=== PATIENT | female | born 1945 | race Caucasian/White ===

== ENCOUNTER 2017-04-23 10:06 | Outpatient (CLI) | payer MEDICARE ==
--- NOTE | 2017-04-23 14:36 | RAD ---
CHEST 2 VIEWS: Date: 04/23/17 HISTORY: Right lower lobe pneumonia. COMPARISON: 07/15/12. FINDINGS: Atherosclerosis of aorta. Normal cardiac silhouette. Pulmonary vessels and hilum are normal. Costophr enic angles are clear. Hyperinflation with chronic changes. No mass. No consolidation. No pneumothora x. Scoliosis of lumbar spine is noted. There is evidence of previous intervention with a device proje cting over the cardiac silhouette. IMPRESSION: 1. No acute cardiopulmonary process. 2. Atherosclerosis. POS: [facility]
== END 2017-04-23 10:07 | disposition home or self-care (01) ==
LOC: SCSRAD 10:06
PROVIDERS: ATTEND Family Medicine
DX: J18.9 Pneumonia, unspecified organism (principal); I70.90 Unspecified atherosclerosis
CPT/HCPCS: 71020

== ENCOUNTER 2017-06-22 06:16 | Day surgery (SDC) | payer MEDICARE ==
[2017-06-21 13:31] VITALS: BMI 26.4
--- NOTE | 2017-06-22 05:51 | HP ---
DATE OF ADMISSION: 06/22/2017 HISTORY OF PRESENT ILLNESS: This is a 71-year-old female seen in my office because of severe indigestion, heartburn, and dyspepsia. She also complains of nausea off and on. . She had no vomiting. She has no abdominal pain. She complains more of heartburn and severe indigestion. The patient had no odynophagia or dysphagia. The patient has been taking antacids very frequently recently. The patient has no history of antibiotic intake. The patient is undergoing EGD because of chronic dysphagia, dyspepsia, heartburn, and indigestion. ALLERGIES: PENICILLIN. MEDICAL ILLNESSES: 1. Hypertension. 2. Hyperlipidemia. 3. Hypothyroidism. 4. Chronic anxiety and depression. 5. Possibility of hepatitis B. SOCIAL HISTORY: The patient does not smoke or drink alcohol. PHYSICAL EXAMINATION: VITAL SIGNS: Pulse is 70, blood pressure 130/80. HEENT: Conjunctivae clear. CARDIOVASCULAR: Lungs within normal limits. ABDOMEN: Soft to palpate. Abdomen is nontender. There is no organomegaly or masses. Bowel sounds are normal. ADMITTING DIAGNOSES: Severe indigestion, heartburn, and dyspepsia. PLAN: EGD. [facility]
--- NOTE | 2017-06-22 15:31 | OP ---
DATE OF PROCEDURE: 06/22/2017 OPERATIVE PROCEDURE: Esophagogastroduodenoscopy with biopsy. PREOPERATIVE DIAGNOSES: Severe indigestion, dyspepsia, nausea and heartburn. The symptoms persist o indio the last several months. The patient is undergoing esophagogastroduodenoscopy. POSTOPERATIVE DIAGNOSES: 1. Normal esophageal mucosa and no esophagitis seen. 2. Antral gastritis. 3. Normal duodenum. PROCEDURE IN DETAIL: The patient was placed on her left lateral position and was given sedation by A nesthesia Department. A [employer] video gastroscope under direct vision was passed down the oropharynx, past the GE junction, into the stomach and subsequently into the descending duodenum. Although the patient complains of severe and persistent acid reflux, severe indigestion, heartburn, and on the end oscopy the esophageal mucosa appeared normal. The GE junction, no pathology seen. Retroflexion of t he scope in the stomach showed no lesions in the fundus or cardia. The gastric body, no pathology se en. The incisura angularis showed mild edema. The gastric antrum showed mild gastritis. Biop sies obtained from the gastric antrum and gastric body. The scope was advanced into the duodenal bul b, and descending duodenum. No lesions seen in the duodenum. The stomach was decompressed and the s cope removed. DISCHARGE PLANNING: This is a 71-year-old female with severe reflux symptoms, dyspepsia, a nd indigestion. The patient came in for EGD. Surprisingly, the EGD showed no esophageal pathology. She did have mild antral gastritis. The patient did well post procedure, and is being discharged. We will plan to obtain abdominal sonogram as this EGD showed no esophageal pathology. The patient al so has history of depression and I will start the patient on Pradaxa 10 mg p.o. from today.
[2017-06-22] MEDS ORDERED: Lidocaine 1% PF 5 ML VIAL ONE (15:59)
[2017-06-22] MEDS ORDERED: Propofol 200 MG/20 ML VIAL ONE (15:59)
== END 2017-06-22 09:30 | disposition home or self-care (01) ==
LOC: SDC 06:16
PROVIDERS: ATTEND Internal Medicine Gastroenterology
PROC: 0DB78ZX Excision of Stomach, Pylorus, Via Natural or Artificial Opening Endoscopic, Diagnostic (ICD-10-PCS; principal; 2017-06-22)
DX: K29.50 Unspecified chronic gastritis without bleeding (principal); I10 Essential (primary) hypertension; E78.5 Hyperlipidemia, unspecified; E03.9 Hypothyroidism, unspecified; F41.8 Other specified anxiety disorders; Z79.82 Long term (current) use of aspirin; Z79.899 Other long term (current) drug therapy; Z88.0 Allergy status to penicillin; Z95.818 Presence of other cardiac implants and grafts; Z90.710 Acquired absence of both cervix and uterus; Z98.890 Other specified postprocedural states
CPT/HCPCS: 88305; 88312; J2001; J2704

== ENCOUNTER 2017-07-19 14:40 | Outpatient (CLI) | payer MEDICARE ==
--- NOTE | 2017-07-19 16:03 | CT ---
CT BRAIN 07/19/17 PROVIDED CLINICAL HISTORY: Head pain. FINDINGS: No comparisons. The ventricular system is nondilated. There is no evidence for intracranial hemorrhage or mass effect . Encephalomalacia involves a portion of the right frontal and temporal lobes. The extracranial soft tissues and osseous structures demonstrate no acute abnormality. IMPRESSION: No evidence for intracranial hemorrhage or mass effect. POS: [facility]
--- NOTE | 2017-07-19 16:37 | CT ---
CT CERVICAL SPINE 07/19/17 PROVIDED CLINICAL HISTORY: Neck pain, status post injury. FINDINGS: There is no evidence for fracture or traumatic subluxation. Vertebral body heights appear preserved. Disc space narrowing and end plate degenerative changes are noted at C3-4 and C5-6. Hemangioma format ion is seen within the body and articular pillar of C2 to the left of midline. No prevertebral soft t issue swelling apparent. The visualized lung apices appear clear. Vascular calcifications are seen. IMPRESSION: No evidence for fracture or traumatic subluxation. POS: [facility]
== END 2017-07-19 14:41 | disposition home or self-care (01) ==
LOC: TBSIIMAG 14:40
PROVIDERS: ATTEND Neurological Surgery
DX: M54.2 Cervicalgia (principal); R51 Headache
CPT/HCPCS: 70450; 72125

== ENCOUNTER 2019-03-25 11:30 | Outpatient (CLI) | payer MEDICARE ==
--- NOTE | 2019-03-25 12:45 | RAD ---
RADIOGRAPH LUMBAR SPINE 3 VIEWS: DATE: 03/25/2019 HISTORY: 73-year-old female with chronic low back pain FINDINGS: There are 5 lumbar-type vertebrae. Diffuse osteopenia. Vertebral body heights are maintained. Focal m ild to moderate levoscoliosis with apex of curvature at L1. Moderate to severe disc space narrowing at all levels from L1-2 through L5-S1, with endplate sclerosis and vacuum disc phenomenon at several of the levels. No high-grade spondylolisthesis. Facet DJD at L5-S1. IMPRESSION: 1) lumbar spondylosis with multilevel high-grade degenerative disc disease. 2) levoscoliosis of upper lumbar spine. 3) osteopenia.
== END 2019-03-25 11:31 | disposition home or self-care (01) ==
LOC: SCSRAD 11:30
PROVIDERS: ATTEND Family Medicine
DX: M54.5 Low back pain (principal); M47.816 Spondylosis without myelopathy or radiculopathy, lumbar region; M41.9 Scoliosis, unspecified; M51.36 Other intervertebral disc degeneration, lumbar region; M85.88 Other specified disorders of bone density and structure, other site
CPT/HCPCS: 72100

== ENCOUNTER 2019-07-01 10:01 | Outpatient (CLI) | payer MEDICARE ==
--- NOTE | 2019-07-01 11:39 | MRI ---
MRI LUMBAR SPINE WITHOUT CONTRAST: Date: 07/01/2019 INDICATION: Lumbar disc degeneration. Back pain. FINDINGS: Lumbar vertebra maintain height. Degenerative disc change is seen at all levels of the lumbar spine w ith loss of disc space. Degenerative osteophytes are seen from the lumbar vertebra. Degenerative end plate changes are prominent at L1-2 with end plate edema noted at this level. End plate edema is also seen at L4-5 disc space, and to a lesser degree at L3-4. These levels of end plate edema would indic ate Modic Type I change. There is edema in the vertebral bodies at L1 and L2, more prominent to the right of midline. At T12-L1, no significant disc abnormality. At L1-2, there is a mid diffuse disc bulge flattening the thecal sac. Moderate facet hypertrophy. No significant central canal stenosis. Mild right foraminal stenosis secondary to facet hypertrophy. At L2-3, mild broad based bulge. Moderate facet hypertrophy. No significant central canal or foramina l stenosis. At L3-4, broad based disc bulge flattens the thecal sac. Moderate facet hypertrophy. Mild central can al stenosis. At L4-5, mild disc bulge with posterior spurring. Prominent facet and ligamentous hypertrophy. Modera te central canal stenosis at this level. No significant foraminal stenosis. At L5-S1, mild disc bulge. Moderate facet hypertrophy. No significant central canal stenosis. There i s right foraminal stenosis secondary to hypertrophic change. IMPRESSION: 1. Multilevel degenerative disc and end plate changes, most pronounced at L1-2, as described above. Edema within the L1 and L2 vertebra to the right of midline probably degenerative in nature but osteo porotic fracture is not excluded. There is no height loss at this time. 2. Central canal stenosis at L4-5 as described above. See description at each level. POS: [facility]
== END 2019-07-01 10:02 | disposition home or self-care (01) ==
LOC: TBSIIMAG 10:01
PROVIDERS: ATTEND Neurological Surgery
DX: M51.36 Other intervertebral disc degeneration, lumbar region (principal); M48.061 Spinal stenosis, lumbar region without neurogenic claudication; M48.07 Spinal stenosis, lumbosacral region; R60.0 Localized edema
CPT/HCPCS: 72148

== ENCOUNTER 2021-05-02 19:58 | Inpatient (IN) | payer MEDICARE ==
[~2021-05-02 19:58] MED LIST: Iopamidol 370 76% 100 ML VIAL ONE; Iopamidol-370 76% 500 ML 1 ML ONE
[2021-05-02 20:40] LABS: #Basophils 0.1 thou/uL (0.0-0.2); #Eosinphils 0.2 thou/uL (0.0-0.7); #Lymphocytes 2.7 thou/uL (1.20-3.40); #Monocytes 0.7 thou/uL (0.11-0.59); #Neutrophils 3.4 thou/uL (1.40-6.50); %Basophils 0.9 % (0.0-1.0); %Eosinophils 2.2 % (0.0-10.0); %Lymphocytes 38.2 % (21.0-51.0); %Monocytes 10.5 % (0.0-10.0); %Neutrophils 48.3 % (42.0-75.0); Hemoglobin 13.2 g/dL (12.0-16.0); Mean Corpuscular HGB CONC 34.8 g/dL (32.0-36.0); Mean Corpuscular Hemoglobin 32.3 pg (27.0-31.0); Mean Corpuscular Volume 92.7 fL (78.0-98.0); Mean Platelet Volume 7.1 fL (7.4-10.4); Platelet Count 251 thou/uL (130-400); RBC Distribution Width 11.9 % (11.5-14.5); Red Blood Cell (RBC) Count 4.09 mill/uL (4.20-5.40)
[2021-05-02 20:53] LABS: PTT 25.6 sec (22.9-36.1); Prothrombin Time 12.9 sec (12.0-14.7)
[2021-05-02] MEDS ORDERED: Heparin 10,000 UNITS/ 10 ML VIAL ONE (20:53)
[2021-05-02 21:03] LABS: ALT (SGPT) 13 U/L (8-55); AST (SGOT) 19 U/L (5-34); Albumin 3.8 g/dL (3.4-4.8); Alkaline Phosphatase 70 U/L (40-110); Anion Gap 12 mmol/L (10-20); BUN (Urea Nitrogen) 16 mg/dL (9.8-20.1); Bilirubin, Total 0.4 mg/dL (0.2-1.2); CK (CPK) 78 U/L (29-168); Calc. Creatinine Clearance 0 mL/min (70-130); Calcium 9.6 mg/dL (7.8-10.44); Carbon Dioxide 25 mmol/L (23-31); Chloride 105 mmol/L (98-107); Globulin 3.1 g/dL (2.4-3.5); Glucose 102 mg/dL (83-110); Potassium 4.2 mmol/L (3.5-5.1); Protein, Total 6.9 g/dL (5.8-8.1); Sodium 138 mmol/L (136-145)
[2021-05-02] MEDS ORDERED: Fentanyl 100 MCG/2 ML VIAL ONE (21:10)
[2021-05-02] MEDS ORDERED: Lidocaine 1% PF 5 ML VIAL ONE (21:22)
[2021-05-02] MEDS ORDERED: PROPOFOL 200 MG/20 ML VIAL ONE (21:22)
[2021-05-02] MEDS ORDERED: Rocuronium Bromide 10 MG/ML (10ML VIAL) ONE (21:22)
[2021-05-02] MEDS ORDERED: Succinylcholine 200 MG/10 ml SYRINGE FS ONE (21:22)
[2021-05-02 22:03] LABS: SARS-CoV-2 NAA Rapid Test Not Detected (NotDetected)
[2021-05-02] MEDS ORDERED: hydrALAZINE 20 MG/ML VIAL SLOW IVP PRN (22:17)
[2021-05-02] MEDS ORDERED: niCARdipine 25 MG in Sodium Chloride 0.9% 250 ML 250 ML IVPB PRN (22:17)
[2021-05-02] MEDS ORDERED: Labetalol HCl 100 MG/20 ML VIAL SLOW IVP PRN (22:17)
[2021-05-02] MEDS ORDERED: Morphine 2 MG/ML VIAL SLOW IVP PRN (23:15)
[2021-05-02] MEDS ORDERED: Propofol 1,000 MG/100 ML VIAL IV PRN (23:15)
[2021-05-02] MEDS ORDERED: DISCONTINUE PREVIOUS NARCOTIC PAIN MEDICATIONS AND BENZODIAZEPINES FS SCH (23:15)
[2021-05-02] MEDS ORDERED: Propofol BOLUS 1,000 MG/100 ML VIAL IV PRN (23:15)
[2021-05-02] MEDS ORDERED: Fentanyl BOLUS 250 ML IVPB PRN (23:15)
[2021-05-02 23:22] LABS: #Basophils 0.1 thou/uL (0.0-0.2); #Eosinphils 0.1 thou/uL (0.0-0.7); #Lymphocytes 4.7 thou/uL (1.20-3.40); #Neutrophils 11.4 thou/uL (1.40-6.50); %Basophils 0.4 % (0.0-1.0); %Eosinophils 0.7 % (0.0-10.0); %Lymphocytes 27.1 % (21.0-51.0); %Monocytes 5.8 % (0.0-10.0); Hemoglobin 13.8 g/dL (12.0-16.0); Mean Corpuscular HGB CONC 32.9 g/dL (32.0-36.0); Mean Corpuscular Hemoglobin 30.7 pg (27.0-31.0); Mean Corpuscular Volume 93.4 fL (78.0-98.0); Mean Platelet Volume 7.1 fL (7.4-10.4); Platelet Count 266 thou/uL (130-400); RBC Distribution Width 11.9 % (11.5-14.5); Red Blood Cell (RBC) Count 4.49 mill/uL (4.20-5.40); White Blood Cell (WBC) Count 17.3 thou/uL (4.8-10.8)
[2021-05-02 23:30] LABS: Anion Gap 13 mmol/L (10-20); BUN (Urea Nitrogen) 14 mg/dL (9.8-20.1); Calc. Creatinine Clearance 0 mL/min (70-130); Calcium 8.7 mg/dL (7.8-10.44); Carbon Dioxide 19 mmol/L (23-31); Chloride 110 mmol/L (98-107); Glucose 135 mg/dL (83-110); Potassium 3.9 mmol/L (3.5-5.1); Sodium 138 mmol/L (136-145)
[2021-05-03] MEDS: Morphine 4 MG/ML VIAL SLOW IVP PRN (00:01)
[2021-05-03] MEDS: Sodium Chloride 0.9% 1,000 ML IV SCH ×2 (00:19→11:29)
[2021-05-03] MEDS: fentaNYL Citrate/PF 2,000 MCG in Sodium Chloride 0.9% 60 ML IV SCH (00:29)
[2021-05-03 03:08] LABS: Base Excess (BEa) -4.3 mEq/L (-2.0 to +3.0); CO2 Tension 29.8 mmHg (35.0-45.0); Calcium, Ionized (arterial) 1.08 mmol/L (1.12-1.30); Carboxyhemoglobin (COHb) 0.3 gm% (0.0-3.0); O2 Tension (PaO2), arterial 126.4 mmHg (> 70.0); Potassium - ABG Lab 3.57 mmol/L (3.70-5.30); pH, Arterial 7.42 (7.35-7.45)
[2021-05-03 03:11] LABS: Puncture Site LBA
[2021-05-03] MEDS: Lorazepam 2 MG/ML VIAL SLOW IVP PRN (03:20)
[2021-05-03 03:50] LABS: Cardiac Risk 2.9 (Less than 4.5)
[2021-05-03] MEDS ORDERED: Norepinephrine 8 MG/0.9% NS 250 ML IVPB SCH (08:15)
[2021-05-03 08:23] LABS: Actual Bicarbonate (HCO3a) 19.4 mEq/L (22-28); Base Excess (BEa) -4.1 mEq/L (-2.0 to +3.0); CO2 Tension 31.6 mmHg (35.0-45.0); Calcium, Ionized (arterial) 1.13 mmol/L (1.12-1.30); Hemoglobin (Hb) 15.5 g/dL (12.0-16.0); O2 Tension (PaO2), arterial 77.5 mmHg (> 70.0); Potassium - ABG Lab 3.59 mmol/L (3.70-5.30); pH, Arterial 7.41 (7.35-7.45)
[2021-05-03 08:24] LABS: Puncture Site LRA
[2021-05-03] MEDS: Aspirin 300 MG Suppository PR SCH (08:56)
[2021-05-03] MEDS: Enoxaparin Sodium 40 MG/0.4 ML SYRINGE SC SCH (08:56)
[2021-05-03] MEDS: Aspirin 325 mg Enteric Coated Tablet PO SCH (08:56)
[2021-05-03] MEDS ORDERED: FLU VACC QS2021-22(65YR UP)/PF 240 MCG/0.7 ML SYRINGE IM ONE (14:00)
[2021-05-03] MEDS: Atorvastatin Calcium 40 MG TAB PO SCH (20:30)
[2021-05-04] MEDS: Sodium Chloride 0.9% 1,000 ML IV SCH ×4 (02:48→19:32)
[2021-05-04] MEDS: Aspirin 300 MG Suppository PR SCH (08:38)
[2021-05-04] MEDS: Aspirin 325 mg Enteric Coated Tablet PO SCH (08:38)
[2021-05-04] MEDS: Enoxaparin Sodium 40 MG/0.4 ML SYRINGE SC SCH (08:38)
[2021-05-04] MEDS: Acetaminophen 325 MG TAB PO PRN (19:39)
[2021-05-04] MEDS: Atorvastatin Calcium 40 MG TAB PO SCH (19:49)
[2021-05-04] MEDS: fentaNYL Citrate/PF 2,000 MCG in Sodium Chloride 0.9% 60 ML IV SCH (23:41)
[2021-05-05 04:14] LABS: #Lymphocytes 1.7 thou/uL (1.20-3.40); #Monocytes 1.2 thou/uL (0.11-0.59); #Neutrophils 7.3 thou/uL (1.40-6.50); %Basophils 0.3 % (0.0-1.0); %Eosinophils 0.2 % (0.0-10.0); %Lymphocytes 16.4 % (21.0-51.0); %Monocytes 11.6 % (0.0-10.0); %Neutrophils 71.5 % (42.0-75.0); Mean Corpuscular HGB CONC 34.7 g/dL (32.0-36.0); Mean Corpuscular Hemoglobin 32.5 pg (27.0-31.0); Mean Corpuscular Volume 93.6 fL (78.0-98.0); Mean Platelet Volume 7.6 fL (7.4-10.4); Platelet Count 163 thou/uL (130-400); RBC Distribution Width 11.8 % (11.5-14.5); Red Blood Cell (RBC) Count 2.47 mill/uL (4.20-5.40); White Blood Cell (WBC) Count 10.3 thou/uL (4.8-10.8)
[2021-05-05 04:35] LABS: Anion Gap 7 mmol/L (10-20); BUN (Urea Nitrogen) 11 mg/dL (9.8-20.1); Calc. Creatinine Clearance 80 mL/min (70-130); Carbon Dioxide 25 mmol/L (23-31); Chloride 109 mmol/L (98-107); Glucose 140 mg/dL (83-110); Potassium 3.2 mmol/L (3.5-5.1); Sodium 138 mmol/L (136-145)
[2021-05-05] MEDS: Sodium Chloride 0.9% 1,000 ML IV SCH (08:12)
[2021-05-05] MEDS: Aspirin 325 mg Enteric Coated Tablet PO SCH (08:12)
[2021-05-05] MEDS: Enoxaparin Sodium 40 MG/0.4 ML SYRINGE SC SCH (08:12)
[2021-05-05] MEDS: Aspirin 300 MG Suppository PR SCH (09:40)
[2021-05-05] MEDS ORDERED: Electrolyte Replacement Protocol 1 EACH FS SCH (10:45)
[2021-05-05] MEDS ORDERED: Potassium Chloride 40 MEQ in Premix Bag 1 BAG IVPB SCH (11:30)
[2021-05-05] MEDS ORDERED: Potassium Chloride 40 MEQ in Sodium Chloride 0.9% 250 ML 250 ML IVPB SCH (12:00)
[2021-05-05] MEDS: Furosemide 20 MG/2 ML VIAL SLOW IVP SCH (12:24)
[2021-05-05] MEDS: Atorvastatin Calcium 40 MG TAB PO SCH (20:00)
[2021-05-05] MEDS: Acetaminophen 325 MG TAB PO PRN (20:00)
[2021-05-06] MEDS: Furosemide 20 MG/2 ML VIAL SLOW IVP SCH (06:38)
[2021-05-06] MEDS: Enoxaparin Sodium 40 MG/0.4 ML SYRINGE SC SCH (08:54)
[2021-05-06] MEDS: Aspirin 325 mg Enteric Coated Tablet PO SCH (08:54)
[2021-05-06] MEDS: Aspirin 300 MG Suppository PR SCH (08:55)
[2021-05-06] MEDS ORDERED: Scopolamine 1.5 mg/72 hour Patch TD SCH (09:30)
[2021-05-06] MEDS ORDERED: Potassium Bicarbonate/Cit Ac 20 MEQ TAB PER TUBE SCH (11:30)
[2021-05-06] MEDS: Morphine 4 MG/ML VIAL SLOW IVP PRN ×2 (13:48→21:46)
[2021-05-06] MEDS: Atorvastatin Calcium 40 MG TAB PO SCH (20:12)
[2021-05-06] MEDS: Acetaminophen 325 MG TAB PO PRN (21:01)
[2021-05-06 21:23] LABS: #Lymphocytes 1.2 thou/uL (1.20-3.40); #Monocytes 0.6 thou/uL (0.11-0.59); %Basophils 0.1 % (0.0-1.0); %Eosinophils 0.5 % (0.0-10.0); %Lymphocytes 18.1 % (21.0-51.0); %Monocytes 8.9 % (0.0-10.0); %Neutrophils 72.4 % (42.0-75.0); Hemoglobin 9.2 g/dL (12.0-16.0); Mean Corpuscular HGB CONC 34.3 g/dL (32.0-36.0); Mean Corpuscular Hemoglobin 31.7 pg (27.0-31.0); Mean Corpuscular Volume 92.5 fL (78.0-98.0); Mean Platelet Volume 7.2 fL (7.4-10.4); Platelet Count 194 thou/uL (130-400); RBC Distribution Width 11.8 % (11.5-14.5); Red Blood Cell (RBC) Count 2.92 mill/uL (4.20-5.40); White Blood Cell (WBC) Count 6.9 thou/uL (4.8-10.8)
[2021-05-06 21:39] LABS: Bacteria/HPF None Seen HPF (None Seen); Bilirubin Negative (Negative); Blood, Urine Negative (Negative); Clarity Clear (Clear); Glucose, Urine (Dipstick) Normal (Negative); Ketone, Urine Negative (Negative); Leukocyte Negative Leu/uL (Negative); Nitrite Negative (Negative); Protein, Urine (Dipstick) 20 mg/dL (Neg-Trace); RBC/HPF 0-3 HPF (0-3); Specific Gravity, Urine 1.027 (1.002-1.036); Squamous Epithelial None Seen HPF (0-3); WBC/HPF 0-3 HPF (0-3); pH, Urine 7.5 (5.0-9.0)
[2021-05-06 21:41] LABS: Urine Culture Reflex No No
[2021-05-07 04:31] LABS: Anion Gap 8 mmol/L (10-20); BUN (Urea Nitrogen) 19 mg/dL (9.8-20.1); Calc. Creatinine Clearance 79 mL/min (70-130); Calcium 8.4 mg/dL (7.8-10.44); Carbon Dioxide 29 mmol/L (23-31); Chloride 105 mmol/L (98-107); Glucose 130 mg/dL (83-110); Potassium 3.8 mmol/L (3.5-5.1); Sodium 138 mmol/L (136-145)
[2021-05-07 05:11] LABS: Band 13 % (5-11); Eosinophils 1 % (0-10); Lymphocytes 23 % (21-51); MDiff Complete? YES; Mean Corpuscular HGB CONC 33.4 g/dL (32.0-36.0); Mean Corpuscular Hemoglobin 31.2 pg (27.0-31.0); Mean Corpuscular Volume 93.5 fL (78.0-98.0); Mean Platelet Volume 7.4 fL (7.4-10.4); Monocytes 7 % (0-10); Neutrophil 55 % (42-75); Platelet Count 228 thou/uL (130-400); RBC Distribution Width 11.8 % (11.5-14.5); Red Blood Cell (RBC) Count 2.55 mill/uL (4.20-5.40)
[2021-05-07 07:06] LABS: Base Excess (BEa) 3.5 mEq/L (-2.0 to +3.0); CO2 Tension 36.9 mmHg (35.0-45.0); Calcium, Ionized (arterial) 1.13 mmol/L (1.12-1.30); Carboxyhemoglobin (COHb) 0.9 gm% (0.0-3.0); Hemoglobin (Hb) 8.9 g/dL (12.0-16.0); O2 Tension (PaO2), arterial 79.2 mmHg (> 70.0); Potassium - ABG Lab 3.99 mmol/L (3.70-5.30); pH, Arterial 7.48 (7.35-7.45)
[2021-05-07 07:34] LABS: ALV-art Gradient 124.225 mmHg (0-20); Puncture Site LRA
[2021-05-07] MEDS: Aspirin 325 mg Enteric Coated Tablet PO SCH (08:30)
[2021-05-07] MEDS: Enoxaparin Sodium 40 MG/0.4 ML SYRINGE SC SCH (08:30)
[2021-05-07] MEDS: Morphine 4 MG/ML VIAL SLOW IVP PRN ×2 (15:31→20:13)
[2021-05-07 19:14] LABS: Troponin I 0.131 ng/mL (< 0.028)
[2021-05-07] MEDS: Atorvastatin Calcium 40 MG TAB PO SCH (20:15)
[2021-05-08 04:56] LABS: Hemoglobin 8.9 g/dL (12.0-16.0); Mean Corpuscular HGB CONC 34.2 g/dL (32.0-36.0); Mean Corpuscular Volume 93.4 fL (78.0-98.0); Mean Platelet Volume 7.4 fL (7.4-10.4); Platelet Count 301 thou/uL (130-400); RBC Distribution Width 11.7 % (11.5-14.5); Red Blood Cell (RBC) Count 2.77 mill/uL (4.20-5.40); White Blood Cell (WBC) Count 11.2 thou/uL (4.8-10.8)
[2021-05-08 05:04] LABS: Band 3 % (5-11); Eosinophils 1 % (0-10); Lymphocytes 21 % (21-51); MDiff Complete? YES; Monocytes 6 % (0-10); Neutrophil 69 % (42-75)
[2021-05-08 05:12] LABS: Anion Gap 10 mmol/L (10-20); BUN (Urea Nitrogen) 15 mg/dL (9.8-20.1); Calc. Creatinine Clearance 88 mL/min (70-130); Carbon Dioxide 29 mmol/L (23-31); Chloride 104 mmol/L (98-107); Glucose 141 mg/dL (83-110); Potassium 3.9 mmol/L (3.5-5.1); Sodium 139 mmol/L (136-145)
[2021-05-08] MEDS: Morphine 4 MG/ML VIAL SLOW IVP PRN ×3 (07:43→20:12)
[2021-05-08] MEDS: Acetaminophen 325 MG TAB PO PRN (07:56)
[2021-05-08 08:04] LABS: Actual Bicarbonate (HCO3a) 23.3 mEq/L (22-28); Base Excess (BEa) 0.6 mEq/L (-2.0 to +3.0); CO2 Tension 30.6 mmHg (35.0-45.0); Calcium, Ionized (arterial) 1.14 mmol/L (1.12-1.30); Carboxyhemoglobin (COHb) 0.7 gm% (0.0-3.0); Hemoglobin (Hb) 9.7 g/dL (12.0-16.0); O2 Tension (PaO2), arterial 62.2 mmHg (> 70.0); Potassium - ABG Lab 4.09 mmol/L (3.70-5.30)
[2021-05-08 08:10] LABS: Puncture Site LRA
[2021-05-08] MEDS: Enoxaparin Sodium 40 MG/0.4 ML SYRINGE SC SCH (09:44)
[2021-05-08] MEDS: Aspirin 325 mg Enteric Coated Tablet PO SCH (09:44)
[2021-05-08 10:22] LABS: Bacteria/HPF 1+ HPF (None Seen); Bilirubin Negative (Negative); Blood, Urine Trace (Negative); Clarity Turbid (Clear); Glucose, Urine (Dipstick) 50 mg/dL (Negative); Ketone, Urine Negative (Negative); Leukocyte 500 Leu/uL (Negative); Nitrite Negative (Negative); Protein, Urine (Dipstick) 70 mg/dL (Neg-Trace); Specific Gravity, Urine 1.028 (1.002-1.036); Squamous Epithelial 0-3 HPF (0-3); Urobilinogen Normal mg/dL (Less than 2); WBC/HPF Greater than 50 HPF (0-3); pH, Urine 8.5 (5.0-9.0)
[2021-05-08] MEDS ORDERED: Vancomycin 1 GM in Premix Bag 1 BAG IVPB SCH (18:00)
[2021-05-08] MEDS: Cefepime 2 GM in Sodium Chloride 0.9% 100 ML IVPB SCH (18:27)
[2021-05-08] MEDS: Atorvastatin Calcium 40 MG TAB PO SCH (20:55)
[2021-05-08] MEDS: Lorazepam 2 MG/ML VIAL SLOW IVP PRN (23:31)
[2021-05-09] MEDS: Acetaminophen 325 MG TAB PO PRN (00:38)
[2021-05-09] MEDS: Morphine 4 MG/ML VIAL SLOW IVP PRN (03:29)
[2021-05-09 04:47] LABS: Anion Gap 11 mmol/L (10-20); BUN (Urea Nitrogen) 20 mg/dL (9.8-20.1); Calc. Creatinine Clearance 83 mL/min (70-130); Calcium 8.8 mg/dL (7.8-10.44); Carbon Dioxide 27 mmol/L (23-31); Chloride 104 mmol/L (98-107); Glucose 139 mg/dL (83-110); Potassium 4.1 mmol/L (3.5-5.1); Sodium 138 mmol/L (136-145)
[2021-05-09] MEDS: Cefepime 2 GM in Sodium Chloride 0.9% 100 ML IVPB SCH ×2 (05:03→17:34)
[2021-05-09] MEDS: Vancomycin HCl 1 GM in Sodium Chloride 0.9% 250 ML 250 ML IVPB SCH ×2 (05:53→18:59)
[2021-05-09 06:27] LABS: Hemoglobin 8.1 g/dL (12.0-16.0); Mean Corpuscular HGB CONC 34.1 g/dL (32.0-36.0); Mean Corpuscular Hemoglobin 32.2 pg (27.0-31.0); Mean Corpuscular Volume 94.4 fL (78.0-98.0); Mean Platelet Volume 7.7 fL (7.4-10.4); Platelet Count 308 thou/uL (130-400); Red Blood Cell (RBC) Count 2.53 mill/uL (4.20-5.40); White Blood Cell (WBC) Count 10.1 thou/uL (4.8-10.8)
[2021-05-09 07:16] LABS: Band 7 % (5-11); Eosinophils 4 % (0-10); Lymphocytes 36 % (21-51); MDiff Complete? YES; Monocytes 4 % (0-10); Neutrophil 49 % (42-75)
[2021-05-09 07:37] LABS: Actual Bicarbonate (HCO3a) 24.2 mEq/L (22-28); Base Excess (BEa) 0.9 mEq/L (-2.0 to +3.0); CO2 Tension 33.3 mmHg (35.0-45.0); Calcium, Ionized (arterial) 1.15 mmol/L (1.12-1.30); Hemoglobin (Hb) 8.3 g/dL (12.0-16.0); O2 Tension (PaO2), arterial 69.8 mmHg (> 70.0); Potassium - ABG Lab 3.65 mmol/L (3.70-5.30); pH, Arterial 7.48 (7.35-7.45)
[2021-05-09 07:38] LABS: ALV-art Gradient 102.475 mmHg (0-20); Puncture Site RRA
[2021-05-09] MEDS: Aspirin 325 mg Enteric Coated Tablet PO SCH (09:47)
[2021-05-09] MEDS: Enoxaparin Sodium 40 MG/0.4 ML SYRINGE SC SCH (09:47)
[2021-05-09] MEDS: Scopolamine 1.5 mg/72 hour Patch TD SCH (09:47)
[2021-05-09] MEDS ORDERED: Propofol 1,000 MG/100 ML VIAL IV ONE (11:24)
[2021-05-09] MEDS ORDERED: Propofol 1,000 MG/100 ML VIAL IV SCH (11:30)
[2021-05-09] MEDS: methylPREDNISolone Sod Succ 40 MG VIAL IVP SCH (11:35)
[2021-05-09] MEDS ORDERED: methylPREDNISolone Sod Succ 40 MG VIAL ONE (11:37)
[2021-05-09] MEDS ORDERED: Rocuronium Bromide 10 MG/ML (10ML VIAL) IVP SCH (12:30)
[2021-05-09] MEDS ORDERED: Fentanyl CADD 100 ML IV SCH (12:30)
[2021-05-09] MEDS ORDERED: Morphine 2 MG/ML VIAL SLOW IVP PRN (12:30)
[2021-05-09] MEDS ORDERED: Propofol BOLUS 1,000 MG/100 ML VIAL IV PRN (12:30)
[2021-05-09] MEDS ORDERED: Lorazepam 2 MG/ML VIAL SLOW IVP PRN (12:30)
[2021-05-09] MEDS ORDERED: PROPOFOL 200 MG/20 ML VIAL IV SCH (12:30)
[2021-05-09] MEDS ORDERED: Fentanyl BOLUS 250 ML IVPB PRN (12:30)
[2021-05-09] MEDS: Propofol 1,000 MG/100 ML VIAL IV PRN ×2 (16:27→23:58)
[2021-05-09] MEDS: Atorvastatin Calcium 40 MG TAB PO SCH (21:25)
[2021-05-10 04:38] LABS: Hemoglobin 9.1 g/dL (12.0-16.0); MDiff Complete? YES; Mean Corpuscular HGB CONC 33.2 g/dL (32.0-36.0); Mean Corpuscular Hemoglobin 31.2 pg (27.0-31.0); Mean Corpuscular Volume 93.8 fL (78.0-98.0); Mean Platelet Volume 7.3 fL (7.4-10.4); Platelet Count 463 thou/uL (130-400); RBC Distribution Width 11.9 % (11.5-14.5); Red Blood Cell (RBC) Count 2.93 mill/uL (4.20-5.40); White Blood Cell (WBC) Count 12.1 thou/uL (4.8-10.8)
[2021-05-10 04:39] LABS: Band 2 % (5-11); Hypochromia SLIGHT = 6-15 cells (100X) (0-5/hpf); Lymphocytes 18 % (21-51); Monocytes 16 % (0-10); Neutrophil 64 % (42-75); Platelet Morphology Comment Appears Increased
[2021-05-10 04:44] LABS: Anion Gap 11 mmol/L (10-20); BUN (Urea Nitrogen) 14 mg/dL (9.8-20.1); Calc. Creatinine Clearance 79 mL/min (70-130); Carbon Dioxide 28 mmol/L (23-31); Chloride 105 mmol/L (98-107); Glucose 163 mg/dL (83-110); Potassium 3.8 mmol/L (3.5-5.1); Sodium 140 mmol/L (136-145)
[2021-05-10 05:38] LABS: Vancomycin, Trough 5.7 ug/mL
[2021-05-10] MEDS: Propofol 1,000 MG/100 ML VIAL IV PRN ×2 (05:40→11:52)
[2021-05-10] MEDS: Cefepime 2 GM in Sodium Chloride 0.9% 100 ML IVPB SCH ×2 (05:40→17:36)
[2021-05-10] MEDS ORDERED: Vancomycin HCl 1 GM in Sodium Chloride 0.9% 250 ML 250 ML IVPB SCH ×2 (06:00→18:00)
[2021-05-10] MEDS: Vancomycin HCl 1 GM in Sodium Chloride 0.9% 250 ML 250 ML IVPB SCH (06:44)
[2021-05-10 06:53] LABS: Actual Bicarbonate (HCO3a) 24.7 mEq/L (22-28); Base Excess (BEa) 2.3 mEq/L (-2.0 to +3.0); CO2 Tension 29.4 mmHg (35.0-45.0); Carboxyhemoglobin (COHb) 0.9 gm% (0.0-3.0); Hemoglobin (Hb) 8.1 g/dL (12.0-16.0); O2 Tension (PaO2), arterial 77.7 mmHg (> 70.0); Potassium - ABG Lab 3.69 mmol/L (3.70-5.30); pH, Arterial 7.54 (7.35-7.45)
[2021-05-10 07:20] LABS: Puncture Site LRA
[2021-05-10] MEDS: Enoxaparin Sodium 40 MG/0.4 ML SYRINGE SC SCH (10:03)
[2021-05-10] MEDS: Aspirin 325 mg Enteric Coated Tablet PO SCH (10:03)
[2021-05-10 11:36] LABS: SARS-CoV-2 PCR by NAA Not Detected (NotDetected)
[2021-05-10] MEDS: methylPREDNISolone Sod Succ 40 MG VIAL IVP SCH (11:51)
[2021-05-10] MEDS ORDERED: Aspirin 325 MG TAB PO SCH (13:30)
[2021-05-10] MEDS ORDERED: Pantoprazole 40 MG GRANULES PACKET PO SCH (13:30)
[2021-05-10] MEDS: Atorvastatin Calcium 40 MG TAB PO SCH (20:01)
[2021-05-11] MEDS: Propofol 1,000 MG/100 ML VIAL IV PRN ×3 (01:28→17:56)
[2021-05-11 04:51] LABS: Anion Gap 9 mmol/L (10-20); BUN (Urea Nitrogen) 19 mg/dL (9.8-20.1); Calc. Creatinine Clearance 80 mL/min (70-130); Calcium 8.8 mg/dL (7.8-10.44); Carbon Dioxide 30 mmol/L (23-31); Chloride 107 mmol/L (98-107); Eosinophils 1 % (0-10); Glucose 112 mg/dL (83-110); Hemoglobin 8.7 g/dL (12.0-16.0); Hypochromia SLIGHT = 6-15 cells (100X) (0-5/hpf); Lymphocytes 19 % (21-51); MDiff Complete? YES; Mean Corpuscular HGB CONC 33.7 g/dL (32.0-36.0); Mean Corpuscular Hemoglobin 31.8 pg (27.0-31.0); Mean Corpuscular Volume 94.5 fL (78.0-98.0); Mean Platelet Volume 6.8 fL (7.4-10.4); Monocytes 14 % (0-10); Neutrophil 66 % (42-75); Platelet Count 528 thou/uL (130-400); Platelet Morphology Comment Appears Increased; Potassium 3.9 mmol/L (3.5-5.1); RBC Distribution Width 12.4 % (11.5-14.5); Red Blood Cell (RBC) Count 2.72 mill/uL (4.20-5.40); Sodium 142 mmol/L (136-145); White Blood Cell (WBC) Count 12.9 thou/uL (4.8-10.8)
[2021-05-11] MEDS: Cefepime 2 GM in Sodium Chloride 0.9% 100 ML IVPB SCH (05:46)
[2021-05-11 07:16] LABS: Actual Bicarbonate (HCO3a) 29.2 mEq/L (22-28); Base Excess (BEa) 5.1 mEq/L (-2.0 to +3.0); Calcium, Ionized (arterial) 1.01 mmol/L (1.12-1.30); Carboxyhemoglobin (COHb) 1.7 gm% (0.0-3.0); Hemoglobin (Hb) 7.7 g/dL (12.0-16.0); O2 Tension (PaO2), arterial 109.7 mmHg (> 70.0); Potassium - ABG Lab 3.82 mmol/L (3.70-5.30); pH, Arterial 7.47 (7.35-7.45)
[2021-05-11 08:09] LABS: Puncture Site LRA
[2021-05-11] MEDS: Pantoprazole 40 MG GRANULES PACKET PO SCH (08:32)
[2021-05-11] MEDS: Enoxaparin Sodium 40 MG/0.4 ML SYRINGE SC SCH (08:32)
[2021-05-11] MEDS: Aspirin 325 MG TAB PO SCH (08:32)
[2021-05-11] MEDS: methylPREDNISolone Sod Succ 40 MG VIAL IVP SCH (10:25)
[2021-05-11] MEDS ORDERED: Fentanyl 100 MCG/2 ML VIAL ONE (16:00)
[2021-05-11] MEDS ORDERED: Xylocaine 1% w/ Epi 1:100K 10 ML VIAL ONE (16:19)
[2021-05-11] MEDS ORDERED: Bupivacaine PF 0.5% 30 ML VIAL ONE (16:19)
[2021-05-11] MEDS ORDERED: Rocuronium Bromide 10 MG/ML (10ML VIAL) ONE (16:30)
[2021-05-11] MEDS ORDERED: cefTRIAXone\\ROCEPHIN 2 GM in Sodium Chloride 0.9% 100 ML IVPB SCH (18:00)
[2021-05-11] MEDS: Atorvastatin Calcium 40 MG TAB PO SCH (21:04)
[2021-05-12] MEDS: Acetaminophen 325 MG TAB PO PRN (04:33)
[2021-05-12 05:15] LABS: Anion Gap 11 mmol/L (10-20); BUN (Urea Nitrogen) 24 mg/dL (9.8-20.1); Calc. Creatinine Clearance 67 mL/min (70-130); Calcium 8.7 mg/dL (7.8-10.44); Carbon Dioxide 29 mmol/L (23-31); Chloride 106 mmol/L (98-107); Glucose 118 mg/dL (83-110); Potassium 4.3 mmol/L (3.5-5.1); Sodium 142 mmol/L (136-145)
[2021-05-12 05:19] LABS: Band 2 % (5-11); Eosinophils 1 % (0-10); Hemoglobin 9.6 g/dL (12.0-16.0); Lymphocytes 19 % (21-51); MDiff Complete? YES; Mean Corpuscular HGB CONC 33.4 g/dL (32.0-36.0); Mean Corpuscular Hemoglobin 31.5 pg (27.0-31.0); Mean Corpuscular Volume 94.4 fL (78.0-98.0); Mean Platelet Volume 6.7 fL (7.4-10.4); Monocytes 8 % (0-10); Neutrophil 70 % (42-75); Platelet Count 612 thou/uL (130-400); Platelet Morphology Comment Appears Increased; RBC Distribution Width 12.4 % (11.5-14.5); Red Blood Cell (RBC) Count 3.06 mill/uL (4.20-5.40); White Blood Cell (WBC) Count 16.1 thou/uL (4.8-10.8)
[2021-05-12] MEDS: Enoxaparin Sodium 40 MG/0.4 ML SYRINGE SC SCH (08:10)
[2021-05-12] MEDS: Aspirin 325 MG TAB PO SCH (08:11)
[2021-05-12] MEDS: Pantoprazole 40 MG GRANULES PACKET PO SCH (08:11)
[2021-05-12] MEDS: Scopolamine 1.5 mg/72 hour Patch TD SCH (08:11)
[2021-05-12] MEDS: methylPREDNISolone Sod Succ 40 MG VIAL IVP SCH (11:04)
[2021-05-12] MEDS ORDERED: Meropenem 1 GM in Sodium Chloride 0.9% 100 ML IVPB SCH ×2 (14:30→22:00)
[2021-05-12] MEDS: Morphine 4 MG/ML VIAL SLOW IVP PRN (15:55)
[2021-05-12] MEDS ORDERED: Atorvastatin Calcium 40 MG TAB PER TUBE SCH (16:01)
[2021-05-12] MEDS: Meropenem 1 GM in Sodium Chloride 0.9% 100 ML IVPB SCH (21:04)
[2021-05-12] MEDS: Atorvastatin Calcium 40 MG TAB PER TUBE SCH (21:04)
[2021-05-13 04:32] LABS: Anion Gap 13 mmol/L (10-20); BUN (Urea Nitrogen) 26 mg/dL (9.8-20.1); Calc. Creatinine Clearance 81 mL/min (70-130); Calcium 8.4 mg/dL (7.8-10.44); Carbon Dioxide 26 mmol/L (23-31); Chloride 105 mmol/L (98-107); Glucose 116 mg/dL (83-110); Potassium 4.1 mmol/L (3.5-5.1); Sodium 140 mmol/L (136-145)
[2021-05-13 04:52] LABS: Band 3 % (5-11); Hemoglobin 8.8 g/dL (12.0-16.0); Lymphocytes 11 % (21-51); MDiff Complete? YES; Mean Corpuscular Hemoglobin 31.3 pg (27.0-31.0); Mean Corpuscular Volume 94.8 fL (78.0-98.0); Mean Platelet Volume 6.7 fL (7.4-10.4); Monocytes 6 % (0-10); Neutrophil 80 % (42-75); Nucleated RBC 1 % (0); Platelet Count 570 thou/uL (130-400); Platelet Morphology Comment Appears Increased; Polychromasia SLIGHT = 2-3 cells (100X) (0-2/hpf); RBC Distribution Width 12.5 % (11.5-14.5); Red Blood Cell (RBC) Count 2.82 mill/uL (4.20-5.40); Stomatocytes SLIGHT = 2-5 cells (100X) (0-1/hpf); White Blood Cell (WBC) Count 17.5 thou/uL (4.8-10.8)
[2021-05-13] MEDS: Meropenem 1 GM in Sodium Chloride 0.9% 100 ML IVPB SCH ×3 (05:25→21:14)
[2021-05-13] MEDS: Pantoprazole 40 MG GRANULES PACKET PER TUBE SCH (08:10)
[2021-05-13] MEDS: Aspirin 325 MG TAB PER TUBE SCH (08:10)
[2021-05-13] MEDS: Enoxaparin Sodium 40 MG/0.4 ML SYRINGE SC SCH (08:10)
[2021-05-13] MEDS: Polyethylene Glycol 3350 17 GM Packet PER TUBE PRN (09:55)
[2021-05-13] MEDS: ALPRAZolam 0.25 MG TAB PO PRN ×3 (10:58→21:14)
[2021-05-13] MEDS: methylPREDNISolone Sod Succ 40 MG VIAL IVP SCH (11:38)
[2021-05-13] MEDS: Atorvastatin Calcium 40 MG TAB PER TUBE SCH (21:14)
[2021-05-14 04:42] LABS: Band 1 % (5-11); Hemoglobin 9.3 g/dL (12.0-16.0); Hypochromia SLIGHT = 6-15 cells (100X) (0-5/hpf); Lymphocytes 5 % (21-51); MDiff Complete? YES; Mean Corpuscular HGB CONC 33.5 g/dL (32.0-36.0); Mean Corpuscular Hemoglobin 31.7 pg (27.0-31.0); Mean Corpuscular Volume 94.5 fL (78.0-98.0); Mean Platelet Volume 6.6 fL (7.4-10.4); Monocytes 5 % (0-10); Neutrophil 89 % (42-75); Platelet Count 655 thou/uL (130-400); Platelet Morphology Comment Appears Increased; RBC Distribution Width 12.5 % (11.5-14.5); Red Blood Cell (RBC) Count 2.94 mill/uL (4.20-5.40); White Blood Cell (WBC) Count 18.1 thou/uL (4.8-10.8)
[2021-05-14 05:03] LABS: Anion Gap 11 mmol/L (10-20); BUN (Urea Nitrogen) 21 mg/dL (9.8-20.1); Calc. Creatinine Clearance 82 mL/min (70-130); Calcium 8.9 mg/dL (7.8-10.44); Carbon Dioxide 29 mmol/L (23-31); Chloride 102 mmol/L (98-107); Glucose 131 mg/dL (83-110); Potassium 4.1 mmol/L (3.5-5.1); Sodium 138 mmol/L (136-145)
[2021-05-14] MEDS: Meropenem 1 GM in Sodium Chloride 0.9% 100 ML IVPB SCH ×3 (05:34→20:56)
[2021-05-14] MEDS: Enoxaparin Sodium 40 MG/0.4 ML SYRINGE SC SCH (07:45)
[2021-05-14] MEDS: Aspirin 325 MG TAB PER TUBE SCH (07:45)
[2021-05-14] MEDS: Pantoprazole 40 MG GRANULES PACKET PER TUBE SCH (07:45)
[2021-05-14] MEDS: ALPRAZolam 0.25 MG TAB PO PRN (15:37)
[2021-05-14] MEDS: Atorvastatin Calcium 40 MG TAB PER TUBE SCH (20:56)
[2021-05-15 05:08] LABS: Anion Gap 13 mmol/L (10-20); BUN (Urea Nitrogen) 20 mg/dL (9.8-20.1); Calc. Creatinine Clearance 74 mL/min (70-130); Calcium 8.9 mg/dL (7.8-10.44); Carbon Dioxide 29 mmol/L (23-31); Chloride 101 mmol/L (98-107); Glucose 129 mg/dL (83-110); Potassium 4.2 mmol/L (3.5-5.1); Sodium 139 mmol/L (136-145)
[2021-05-15 05:17] LABS: Band 3 % (5-11); Eosinophils 1 % (0-10); Hemoglobin 10.3 g/dL (12.0-16.0); Lymphocytes 10 % (21-51); MDiff Complete? YES; Mean Corpuscular HGB CONC 33.1 g/dL (32.0-36.0); Mean Corpuscular Hemoglobin 31.7 pg (27.0-31.0); Mean Corpuscular Volume 95.8 fL (78.0-98.0); Mean Platelet Volume 6.7 fL (7.4-10.4); Monocytes 2 % (0-10); Myelocyte 1 % (0-0); Neutrophil 82 % (42-75); Nucleated RBC 1 % (0); Platelet Count 737 thou/uL (130-400); Platelet Morphology Comment Appears Increased; RBC Distribution Width 12.9 % (11.5-14.5); RBC Morphology Normal; Reactive Lymphocytes 1 % (0-10); Red Blood Cell (RBC) Count 3.25 mill/uL (4.20-5.40); White Blood Cell (WBC) Count 17.5 thou/uL (4.8-10.8)
[2021-05-15] MEDS: Meropenem 1 GM in Sodium Chloride 0.9% 100 ML IVPB SCH ×3 (05:26→21:28)
[2021-05-15] MEDS: Acetaminophen 650 MG/20.3 ML UDCUP PER TUBE PRN ×3 (05:26→21:31)
[2021-05-15] MEDS: ALPRAZolam 0.25 MG TAB PO PRN ×3 (07:29→21:30)
[2021-05-15] MEDS: Enoxaparin Sodium 40 MG/0.4 ML SYRINGE SC SCH (07:29)
[2021-05-15] MEDS: Scopolamine 1.5 mg/72 hour Patch TD SCH (07:29)
[2021-05-15] MEDS: Aspirin 325 MG TAB PER TUBE SCH (07:30)
[2021-05-15] MEDS: Pantoprazole 40 MG VIAL IVP SCH (08:51)
[2021-05-15] MEDS: Atorvastatin Calcium 40 MG TAB PER TUBE SCH (21:31)
[2021-05-16 04:38] LABS: Band 1 % (5-11); Eosinophils 2 % (0-10); Hemoglobin 10.9 g/dL (12.0-16.0); Hypochromia SLIGHT = 6-15 cells (100X) (0-5/hpf); Lymphocytes 14 % (21-51); MDiff Complete? YES; Mean Corpuscular HGB CONC 32.9 g/dL (32.0-36.0); Mean Corpuscular Hemoglobin 31.5 pg (27.0-31.0); Mean Corpuscular Volume 95.5 fL (78.0-98.0); Mean Platelet Volume 6.6 fL (7.4-10.4); Neutrophil 83 % (42-75); Platelet Count 719 thou/uL (130-400); Platelet Morphology Comment Appears Increased; RBC Distribution Width 12.9 % (11.5-14.5); Red Blood Cell (RBC) Count 3.47 mill/uL (4.20-5.40); White Blood Cell (WBC) Count 15.9 thou/uL (4.8-10.8)
[2021-05-16 04:48] LABS: Anion Gap 13 mmol/L (10-20); BUN (Urea Nitrogen) 14 mg/dL (9.8-20.1); Calc. Creatinine Clearance 78 mL/min (70-130); Carbon Dioxide 25 mmol/L (23-31); Chloride 103 mmol/L (98-107); Glucose 86 mg/dL (83-110); Potassium 4.2 mmol/L (3.5-5.1); Sodium 137 mmol/L (136-145)
[2021-05-16] MEDS ORDERED: Lidocaine 1% w/Epinephrine 1:100K 20 ML VIAL ONE (07:51)
[2021-05-16] MEDS: Pantoprazole 40 MG VIAL IVP SCH (09:49)
[2021-05-16] MEDS: Meropenem 1 GM in Sodium Chloride 0.9% 100 ML IVPB SCH ×3 (09:50→18:29)
[2021-05-16] MEDS: Enoxaparin Sodium 40 MG/0.4 ML SYRINGE SC SCH (09:50)
[2021-05-16] MEDS: Aspirin 325 MG TAB PER TUBE SCH (09:50)
[2021-05-16 15:15] VITALS: BMI 24.3
[2021-05-16] MEDS: Atorvastatin Calcium 40 MG TAB PER TUBE SCH (20:14)
[2021-05-16] MEDS: Acetaminophen 650 MG/20.3 ML UDCUP PER TUBE PRN (20:21)
[2021-05-17] MEDS: Meropenem 1 GM in Sodium Chloride 0.9% 100 ML IVPB SCH ×3 (02:17→17:37)
[2021-05-17 03:35] LABS: Hemoglobin 10.5 g/dL (12.0-16.0); Mean Corpuscular HGB CONC 34.1 g/dL (32.0-36.0); Mean Corpuscular Hemoglobin 32.1 pg (27.0-31.0); Mean Corpuscular Volume 94.1 fL (78.0-98.0); Mean Platelet Volume 6.1 fL (7.4-10.4); Platelet Count 703 thou/uL (130-400); Red Blood Cell (RBC) Count 3.27 mill/uL (4.20-5.40); White Blood Cell (WBC) Count 13.2 thou/uL (4.8-10.8)
[2021-05-17 03:53] LABS: Anion Gap 12 mmol/L (10-20); BUN (Urea Nitrogen) 17 mg/dL (9.8-20.1); Calc. Creatinine Clearance 72 mL/min (70-130); Calcium 8.8 mg/dL (7.8-10.44); Carbon Dioxide 24 mmol/L (23-31); Chloride 104 mmol/L (98-107); Glucose 132 mg/dL (83-110); Potassium 4.4 mmol/L (3.5-5.1); Sodium 136 mmol/L (136-145)
[2021-05-17 04:10] LABS: Band 6 % (5-11); Eosinophils 3 % (0-10); Lymphocytes 15 % (21-51); MDiff Complete? YES; Monocytes 5 % (0-10); Myelocyte 1 % (0-0); Neutrophil 70 % (42-75); Platelet Morphology Comment Appears Increased; RBC Morphology Normal
[2021-05-17] MEDS: Enoxaparin Sodium 40 MG/0.4 ML SYRINGE SC SCH (09:03)
[2021-05-17] MEDS: Pantoprazole 40 MG VIAL IVP SCH (09:03)
[2021-05-17] MEDS: Aspirin 325 MG TAB PER TUBE SCH (09:03)
[2021-05-17] MEDS: Acetaminophen 650 MG/20.3 ML UDCUP PER TUBE PRN ×2 (09:11→21:36)
[2021-05-17] MEDS: Atorvastatin Calcium 40 MG TAB PER TUBE SCH (21:36)
[2021-05-18] MEDS: Meropenem 1 GM in Sodium Chloride 0.9% 100 ML IVPB SCH ×3 (01:54→18:16)
[2021-05-18 06:14] LABS: Band 4 % (5-11); Eosinophils 1 % (0-10); Hemoglobin 10.8 g/dL (12.0-16.0); Hypochromia SLIGHT = 6-15 cells (100X) (0-5/hpf); Lymphocytes 18 % (21-51); MDiff Complete? YES; Mean Corpuscular HGB CONC 33.4 g/dL (32.0-36.0); Mean Corpuscular Volume 95.7 fL (78.0-98.0); Mean Platelet Volume 6.1 fL (7.4-10.4); Monocytes 10 % (0-10); Neutrophil 67 % (42-75); Platelet Count 742 thou/uL (130-400); Platelet Morphology Comment Appears Increased; RBC Distribution Width 13.1 % (11.5-14.5); Red Blood Cell (RBC) Count 3.37 mill/uL (4.20-5.40); White Blood Cell (WBC) Count 11.6 thou/uL (4.8-10.8)
[2021-05-18 06:29] LABS: Anion Gap 14 mmol/L (10-20); BUN (Urea Nitrogen) 15 mg/dL (9.8-20.1); Calc. Creatinine Clearance 78 mL/min (70-130); Calcium 9.2 mg/dL (7.8-10.44); Carbon Dioxide 26 mmol/L (23-31); Chloride 103 mmol/L (98-107); Glucose 130 mg/dL (83-110); Potassium 4.6 mmol/L (3.5-5.1); Sodium 138 mmol/L (136-145)
[2021-05-18] MEDS: Scopolamine 1.5 mg/72 hour Patch TD SCH (09:12)
[2021-05-18] MEDS: Aspirin 325 MG TAB PER TUBE SCH (09:12)
[2021-05-18] MEDS: Pantoprazole 40 MG VIAL IVP SCH (09:12)
[2021-05-18] MEDS: Enoxaparin Sodium 40 MG/0.4 ML SYRINGE SC SCH (09:12)
[2021-05-18] MEDS: Acetaminophen 650 MG/20.3 ML UDCUP PER TUBE PRN ×2 (10:00→22:12)
[2021-05-18 10:52] LABS: SARS-CoV-2 PCR by NAA Not Detected (NotDetected)
[2021-05-18] MEDS: Atorvastatin Calcium 40 MG TAB PER TUBE SCH (21:56)
[2021-05-19] MEDS: Meropenem 1 GM in Sodium Chloride 0.9% 100 ML IVPB SCH ×3 (02:24→17:29)
[2021-05-19 07:38] LABS: Hemoglobin 10.8 g/dL (12.0-16.0); Mean Corpuscular Hemoglobin 31.6 pg (27.0-31.0); Mean Platelet Volume 6.3 fL (7.4-10.4); Platelet Count 718 thou/uL (130-400); RBC Distribution Width 13.1 % (11.5-14.5); Red Blood Cell (RBC) Count 3.43 mill/uL (4.20-5.40); White Blood Cell (WBC) Count 11.8 thou/uL (4.8-10.8)
[2021-05-19 07:44] LABS: Anion Gap 14 mmol/L (10-20); BUN (Urea Nitrogen) 13 mg/dL (9.8-20.1); Calc. Creatinine Clearance 74 mL/min (70-130); Carbon Dioxide 28 mmol/L (23-31); Chloride 100 mmol/L (98-107); Glucose 137 mg/dL (83-110); Potassium 4.6 mmol/L (3.5-5.1); Sodium 137 mmol/L (136-145)
[2021-05-19 08:47] LABS: Band 3 % (5-11); Eosinophils 2 % (0-10); Lymphocytes 20 % (21-51); MDiff Complete? YES; Monocytes 3 % (0-10); Neutrophil 72 % (42-75); Platelet Morphology Comment Appears Increased; Polychromasia SLIGHT = 2-3 cells (100X) (0-2/hpf)
[2021-05-19] MEDS: Acetaminophen 650 MG/20.3 ML UDCUP PER TUBE PRN ×2 (09:07→20:09)
[2021-05-19] MEDS: Enoxaparin Sodium 40 MG/0.4 ML SYRINGE SC SCH (09:08)
[2021-05-19] MEDS: Aspirin 325 MG TAB PER TUBE SCH (09:08)
[2021-05-19] MEDS: Pantoprazole 40 MG VIAL IVP SCH (09:08)
[2021-05-19] MEDS: Atorvastatin Calcium 40 MG TAB PER TUBE SCH (20:09)
[2021-05-20] MEDS: Meropenem 1 GM in Sodium Chloride 0.9% 100 ML IVPB SCH ×3 (02:48→17:32)
[2021-05-20 07:23] LABS: Hemoglobin 11.2 g/dL (12.0-16.0); Mean Corpuscular Hemoglobin 30.8 pg (27.0-31.0); Mean Corpuscular Volume 96.3 fL (78.0-98.0); Mean Platelet Volume 6.3 fL (7.4-10.4); Platelet Count 754 thou/uL (130-400); RBC Distribution Width 13.3 % (11.5-14.5); Red Blood Cell (RBC) Count 3.62 mill/uL (4.20-5.40); White Blood Cell (WBC) Count 11.3 thou/uL (4.8-10.8)
[2021-05-20] MEDS: Enoxaparin Sodium 40 MG/0.4 ML SYRINGE SC SCH (10:06)
[2021-05-20] MEDS: Aspirin 325 MG TAB PER TUBE SCH (10:06)
[2021-05-20] MEDS: Acetaminophen 650 MG/20.3 ML UDCUP PER TUBE PRN ×3 (10:07→22:24)
[2021-05-20] MEDS: Pantoprazole 40 MG VIAL IVP SCH (10:07)
[2021-05-20 11:25] LABS: Band 4 % (5-11); Eosinophils 5 % (0-10); Lymphocytes 17 % (21-51); MDiff Complete? YES; Monocytes 9 % (0-10); Neutrophil 64 % (42-75); Platelet Morphology Comment Appears Increased; Polychromasia SLIGHT = 2-3 cells (100X) (0-2/hpf); Reactive Lymphocytes 1 % (0-10)
[2021-05-20] MEDS ORDERED: Levothyroxine Sodium 88 MCG TAB PO SCH (12:15)
[2021-05-20] MEDS: Ondansetron PF 4 MG/2 ML Vial IVP PRN (12:39)
[2021-05-20] MEDS: Atorvastatin Calcium 40 MG TAB PER TUBE SCH (22:25)
[2021-05-20] MEDS: Lorazepam 1 MG TAB PO PRN (22:25)
[2021-05-21] MEDS: Meropenem 1 GM in Sodium Chloride 0.9% 100 ML IVPB SCH ×3 (01:10→18:17)
[2021-05-21] MEDS: Levothyroxine Sodium 88 MCG TAB PO SCH (06:03)
[2021-05-21 06:16] LABS: Mean Corpuscular Hemoglobin 31.3 pg (27.0-31.0); Mean Corpuscular Volume 97.9 fL (78.0-98.0); Mean Platelet Volume 6.2 fL (7.4-10.4); Platelet Count 591 thou/uL (130-400); RBC Distribution Width 13.6 % (11.5-14.5); Red Blood Cell (RBC) Count 3.52 mill/uL (4.20-5.40); White Blood Cell (WBC) Count 9.1 thou/uL (4.8-10.8)
[2021-05-21 06:23] LABS: Band 4 % (5-11); Eosinophils 2 % (0-10); Lymphocytes 20 % (21-51); MDiff Complete? YES; Monocytes 6 % (0-10); Neutrophil 67 % (42-75); Platelet Morphology Comment Appears Increased; Reactive Lymphocytes 1 % (0-10)
[2021-05-21] MEDS: Aspirin 325 MG TAB PER TUBE SCH (09:36)
[2021-05-21] MEDS: Scopolamine 1.5 mg/72 hour Patch TD SCH (09:37)
[2021-05-21] MEDS: Pantoprazole 40 MG VIAL IVP SCH (09:42)
[2021-05-21] MEDS: Enoxaparin Sodium 40 MG/0.4 ML SYRINGE SC SCH (09:42)
[2021-05-21] MEDS ORDERED: Clopidogrel Bisulfate 75 MG TAB PO SCH (11:42)
[2021-05-21] MEDS ORDERED: Clopidogrel Bisulfate 75 MG TAB PER TUBE SCH (12:15)
[2021-05-21] MEDS: Acetaminophen 650 MG/20.3 ML UDCUP PER TUBE PRN (14:09)
[2021-05-21] MEDS: Ondansetron PF 4 MG/2 ML Vial IVP PRN (19:28)
[2021-05-21] MEDS: Atorvastatin Calcium 40 MG TAB PER TUBE SCH (20:29)
[2021-05-22] MEDS: Meropenem 1 GM in Sodium Chloride 0.9% 100 ML IVPB SCH ×3 (01:37→18:12)
[2021-05-22] MEDS: Acetaminophen 650 MG/20.3 ML UDCUP PER TUBE PRN ×4 (01:38→22:43)
[2021-05-22] MEDS: Levothyroxine Sodium 88 MCG TAB PO SCH (05:57)
[2021-05-22] MEDS ORDERED: Aspirin Chewable 81 MG TAB PER TUBE SCH (09:00)
[2021-05-22] MEDS ORDERED: Clopidogrel Bisulfate 75 MG TAB PER TUBE SCH (09:00)
[2021-05-22] MEDS: Pantoprazole 40 MG VIAL IVP SCH (09:41)
[2021-05-22] MEDS: Enoxaparin Sodium 40 MG/0.4 ML SYRINGE SC SCH (09:41)
[2021-05-22] MEDS: Polyethylene Glycol 3350 17 GM Packet PER TUBE PRN (09:41)
[2021-05-22] MEDS: Ondansetron PF 4 MG/2 ML Vial IVP PRN (10:04)
[2021-05-22 11:26] LABS: Band 4 % (5-11); Eosinophils 1 % (0-10); Hemoglobin 11.3 g/dL (12.0-16.0); Lymphocytes 19 % (21-51); MDiff Complete? YES; Mean Corpuscular HGB CONC 31.9 g/dL (32.0-36.0); Mean Corpuscular Hemoglobin 30.8 pg (27.0-31.0); Mean Corpuscular Volume 96.8 fL (78.0-98.0); Mean Platelet Volume 6.3 fL (7.4-10.4); Monocytes 7 % (0-10); Neutrophil 69 % (42-75); Platelet Count 651 thou/uL (130-400); RBC Distribution Width 13.9 % (11.5-14.5); Red Blood Cell (RBC) Count 3.65 mill/uL (4.20-5.40); White Blood Cell (WBC) Count 8.9 thou/uL (4.8-10.8)
[2021-05-22] MEDS ORDERED: Dexamethasone 4 mg/ml Vial SLOW IVP SCH (12:15)
[2021-05-22] MEDS: Lorazepam 1 MG TAB PO PRN (22:43)
[2021-05-22] MEDS: Atorvastatin Calcium 40 MG TAB PER TUBE SCH (22:43)
[2021-05-23] MEDS: Meropenem 1 GM in Sodium Chloride 0.9% 100 ML IVPB SCH ×2 (01:34→09:53)
[2021-05-23] MEDS: Levothyroxine Sodium 88 MCG TAB PO SCH (06:00)
[2021-05-23 06:15] LABS: Eosinophils 1 % (0-10); Hemoglobin 10.9 g/dL (12.0-16.0); Hypochromia SLIGHT = 6-15 cells (100X) (0-5/hpf); Lymphocytes 20 % (21-51); MDiff Complete? YES; Mean Corpuscular HGB CONC 31.4 g/dL (32.0-36.0); Mean Corpuscular Hemoglobin 30.2 pg (27.0-31.0); Mean Corpuscular Volume 96.3 fL (78.0-98.0); Mean Platelet Volume 6.4 fL (7.4-10.4); Monocytes 8 % (0-10); Neutrophil 71 % (42-75); Platelet Count 666 thou/uL (130-400); Platelet Morphology Comment Appears Increased; RBC Distribution Width 14.1 % (11.5-14.5); Red Blood Cell (RBC) Count 3.59 mill/uL (4.20-5.40); White Blood Cell (WBC) Count 9.3 thou/uL (4.8-10.8)
[2021-05-23] MEDS: Lansoprazole 3 MG/ML ORAL SUSPENSION PER TUBE SCH (09:51)
[2021-05-23] MEDS: Atorvastatin Calcium 40 MG TAB PER TUBE SCH (23:08)
[2021-05-23] MEDS: Polyethylene Glycol 3350 17 GM Packet PER TUBE PRN (23:08)
[2021-05-24] MEDS: Levothyroxine Sodium 88 MCG TAB PO SCH (06:28)
[2021-05-24 06:37] LABS: Hemoglobin 11.1 g/dL (12.0-16.0); Mean Corpuscular HGB CONC 32.1 g/dL (32.0-36.0); Mean Corpuscular Hemoglobin 31.3 pg (27.0-31.0); Mean Corpuscular Volume 97.5 fL (78.0-98.0); Mean Platelet Volume 6.3 fL (7.4-10.4); Platelet Count 563 thou/uL (130-400); RBC Distribution Width 14.2 % (11.5-14.5); Red Blood Cell (RBC) Count 3.56 mill/uL (4.20-5.40); White Blood Cell (WBC) Count 9.3 thou/uL (4.8-10.8)
[2021-05-24 07:51] LABS: Band 3 % (5-11); Eosinophils 3 % (0-10); Lymphocytes 35 % (21-51); MDiff Complete? YES; Monocytes 2 % (0-10); Neutrophil 57 % (42-75); Platelet Morphology Comment Appears Increased; Polychromasia SLIGHT = 2-3 cells (100X) (0-2/hpf)
[2021-05-24] MEDS: Acetaminophen 650 MG/20.3 ML UDCUP PER TUBE PRN ×2 (09:25→18:09)
[2021-05-24] MEDS: Scopolamine 1.5 mg/72 hour Patch TD SCH (09:26)
[2021-05-24] MEDS: Polyethylene Glycol 3350 17 GM Packet PER TUBE PRN (09:26)
[2021-05-24] MEDS: Artificial Tear Sol 15 ML BOT EA EYE PRN (09:26)
[2021-05-24] MEDS: Lansoprazole 3 MG/ML ORAL SUSPENSION PER TUBE SCH (11:29)
[2021-05-24] MEDS: Atorvastatin Calcium 40 MG TAB PER TUBE SCH (22:09)
[2021-05-24] MEDS: Lorazepam 1 MG TAB PO PRN (22:09)
[2021-05-24 23:47] LABS: SARS-CoV-2 PCR by NAA Not Detected (NotDetected)
[2021-05-25] MEDS: Levothyroxine Sodium 88 MCG TAB PO SCH (06:17)
[2021-05-25 07:35] LABS: Hemoglobin 11.2 g/dL (12.0-16.0); Mean Corpuscular HGB CONC 31.5 g/dL (32.0-36.0); Mean Corpuscular Hemoglobin 30.4 pg (27.0-31.0); Mean Corpuscular Volume 96.2 fL (78.0-98.0); Mean Platelet Volume 6.5 fL (7.4-10.4); Platelet Count 503 thou/uL (130-400); RBC Distribution Width 14.1 % (11.5-14.5); White Blood Cell (WBC) Count 10.7 thou/uL (4.8-10.8)
[2021-05-25 08:24] LABS: Band 8 % (5-11); Eosinophils 4 % (0-10); Lymphocytes 16 % (21-51); MDiff Complete? YES; Monocytes 7 % (0-10); Neutrophil 65 % (42-75); Platelet Morphology Comment Appears Increased; Polychromasia SLIGHT = 2-3 cells (100X) (0-2/hpf)
[2021-05-25] MEDS: Artificial Tear Sol 15 ML BOT EA EYE PRN (09:19)
[2021-05-25] MEDS: Acetaminophen 650 MG/20.3 ML UDCUP PER TUBE PRN (09:20)
[2021-05-25] MEDS: Ondansetron PF 4 MG/2 ML Vial IVP PRN (09:31)
[2021-05-25] MEDS: Lorazepam 1 MG TAB PO PRN (09:31)
[2021-05-25] MEDS: Lansoprazole 3 MG/ML ORAL SUSPENSION PER TUBE SCH (09:34)
[2021-05-25 17:19] VITALS: BP 117/64; TEMP 97.8
== END 2021-05-25 22:26 | DRG 3 ==
LOC: ERS 19:58 → CCU 21:12 → SDC/OP 21:29 → CCU 22:47 → IMCU/EMU 05-15 18:48 → NEURO 05-17 15:04
PROVIDERS: ADMIT Internal Medicine; ATTEND Internal Medicine
PROC: 0BH17EZ Insertion of Endotracheal Airway into Trachea, Via Natural or Artificial Opening (ICD-10-PCS; principal; 2021-05-02)
PROC: 5A1955Z Respiratory Ventilation, Greater than 96 Consecutive Hours (ICD-10-PCS; 2021-05-02)
PROC: 0D9670Z Drainage of Stomach with Drainage Device, Via Natural or Artificial Opening (ICD-10-PCS; 2021-05-02)
PROC: 03CK3ZZ Extirpation of Matter from Right Internal Carotid Artery, Percutaneous Approach (ICD-10-PCS; 2021-05-04)
PROC: 0BH17EZ Insertion of Endotracheal Airway into Trachea, Via Natural or Artificial Opening (ICD-10-PCS; 2021-05-09)
PROC: 5A1955Z Respiratory Ventilation, Greater than 96 Consecutive Hours (ICD-10-PCS; 2021-05-09)
PROC: 0B21XFZ Change Tracheostomy Device in Trachea, External Approach (ICD-10-PCS; 2021-05-20)
PROC: 0B110F4 Bypass Trachea to Cutaneous with Tracheostomy Device, Open Approach (ICD-10-PCS; 2021-05-21)
PROC: 0DH63UZ Insertion of Feeding Device into Stomach, Percutaneous Approach (ICD-10-PCS; 2021-05-21)
DX: I63.511 Cerebral infarction due to unspecified occlusion or stenosis of right middle cerebral artery (principal); G93.41 Metabolic encephalopathy; J96.01 Acute respiratory failure with hypoxia; J69.0 Pneumonitis due to inhalation of food and vomit; I61.9 Nontraumatic intracerebral hemorrhage, unspecified; G93.6 Cerebral edema; I63.231 Cerebral infarction due to unspecified occlusion or stenosis of right carotid arteries; R04.89 Hemorrhage from other sites in respiratory passages; G81.94 Hemiplegia, unspecified affecting left nondominant side; E46 Unspecified protein-calorie malnutrition; N39.0 Urinary tract infection, site not specified; Z20.822 Contact with and (suspected) exposure to COVID-19; E03.9 Hypothyroidism, unspecified; R29.713 NIHSS score 13; R00.1 Bradycardia, unspecified; R79.89 Other specified abnormal findings of blood chemistry; I10 Essential (primary) hypertension; R29.810 Facial weakness; I25.10 Atherosclerotic heart disease of native coronary artery without angina pectoris; E78.5 Hyperlipidemia, unspecified; K21.9 Gastro-esophageal reflux disease without esophagitis; R13.12 Dysphagia, oropharyngeal phase; B96.4 Proteus (mirabilis) (morganii) as the cause of diseases classified elsewhere; B96.1 Klebsiella pneumoniae [K. pneumoniae] as the cause of diseases classified elsewhere; M25.561 Pain in right knee; D64.9 Anemia, unspecified; Z79.82 Long term (current) use of aspirin; Z79.899 Other long term (current) drug therapy; Z68.24 Body mass index [BMI] 24.0-24.9, adult; Z78.1 Physical restraint status; Z88.0 Allergy status to penicillin; Z86.73 Personal history of transient ischemic attack (TIA), and cerebral infarction without residual deficits; I25.2 Old myocardial infarction; Z79.890 Hormone replacement therapy
CPT/HCPCS: 33285; 36415; 36416; 36596; 36600; 70450; 70496; 70498; 70551; 71045; 74177; 80048; 80053; 80061; 80202; 81001; 82550; 82805; 83735; 83880; 84484; 85007; 85025; 85027; 85610; 85730; 86850; 86900; 86901; 87040; 87077; 87086; 87186; 93005; 93010; 93306; 93970; 94002; 94003; 94640; C1713; C1764; C1887; C9113; J0692; J0696; J1100; J1644; J1650; J1940; J2060; J2185; J2270; J2405; J2704; J2920; J3010; J3370; J3480; J3490; J7050; Q9967; S0020; U0002; U0003; U0005